=== PATIENT | female | born 1985 | race Caucasian/White ===

== ENCOUNTER 2020-04-05 15:19 | Emergency (ER) | payer BC, MEDICAID ==
[2020-04-05 15:37] VITALS: BP 119/72; PULSE 97
[2020-04-05] MEDS ORDERED: Sodium Chloride 0.9% 10 ML Syringe FLUSH PRN (15:49)
[2020-04-05] MEDS ORDERED: Dextrose 5%-0.9% NaCl 1,000 ML IV SCH (15:50)
[2020-04-05] MEDS ORDERED: LORazepam 2 MG/ML SDV IVPUSH ONE (15:50)
--- NOTE | 2020-04-05 15:58 | EDM.PDOC ---
ED HPI GENERAL MEDICAL PROBLEM - General Chief Complaint: DIRECTOR OF CONSERVATION Problem Stated Complaint: SOB/DIZZY/CRAMPS-18WEEK Time Seen by Provider: 04/05/20 15:40 Source of Information: Reports: Patient, RN Notes Reviewed History Limitations: Reports: No Limitations - History of Present Illness INITIAL COMMENTS - FREE TEXT/NARRATIVE: Patient is a 34-year-old female who presents to the ED for the evaluation of her shortness of breath and dizziness. Patient notes she has around 18 weeks . She is a G3, . DIRECTOR OF CONSERVATION is Dr. Felecia Draper. Patient notes has been going well however for the last few weeks, she wakes up in [place], where she feels like she just cannot catch her breath. She notes that this started this morning early, and she is having some chest discomfort, shortness of breath, and dizziness with standing. She states that she felt quite fine yesterday. She does have a history of anxiety but is not on any medications for this. She was complaining of some lower abdomen cramping after she began feeling short of breath. She thought maybe she was having some decreased movement at today's visit. Heart tones were obtained at time of triage and these were found by Doppler at 150-155 bpm. Otherwise patient had no fevers or chills, cough, or any other sick-like symptoms. Lower Abdomen Pain Score (Numeric/FACES): 5 - Related Data Allergies Allergy/AdvReac Type Severity Reaction Status Date / Time Sulfa (Sulfonamide Allergy Hives Verified 04/05/20 15:37 Antibiotics) Home Meds: Home Meds QUEtiapine [SEROquel] 100 mg PO BEDTIME 02/04/19 [History] oxyCODONE 7.5 mg PO Q6HR PRN 02/04/19 [History] LORazepam [Ativan] 1 mg PO BID PRN #12 tab 04/05/20 [Rx] Magnesium 2 tab PO BID 04/05/20 [History] Pnv No.95/Ferrous Fum/Folic AC [ Caplet] 2 tab PO DAILY 04/05/20 [History] Past Medical History Other Gastrointestinal History: stomach pain for 2 months Other Genitourinary History: vulvadema DIRECTOR OF CONSERVATION History: Reports: Spontaneous (x1) : 3 Para: 1 Other Psychiatric History: anxiety that is now under control. depression in the past. - Past Surgical History Female Surgical History: Reports: Section Other Female Surgeries/Procedures: 2 surgeries for vulvedemia Social & Family History - Tobacco Use Tobacco Use Status *Q: Current Every Day Tobacco User Years of Tobacco use: 20 Packs/Tins Daily: 0.5 - Caffeine Use Caffeine Use: Reports: None - Recreational Drug Use Recreational Drug Use: No ED ROS GENERAL - Review of Systems Review Of Systems: Comprehensive ROS is negative, except as noted in HPI. ED EXAM - Physical Exam Exam: See Below Exam Limited By: No Limitations General Appearance: Alert, WD/WN, No Apparent Distress Respiratory/Chest: No Respiratory Distress, Lungs Clear, Normal Breath Sounds, No Accessory Muscle Use, Chest Non-Tender Cardiovascular: Normal Peripheral Pulses, Regular Rate, Rhythm, No Edema GI/Abdominal Exam: Normal Bowel Sounds, Soft, Non-Tender, No Distention, No Mass Heart Tones: Present Heart Tones per Min: 155 Movement: Active Psychiatric: Normal Affect, Normal Mood, Anxious (generalized anxiety appreciated) Skin Exam: Warm, Dry, Intact, Normal Color, No Rash Course - Vital Signs Last Recorded V/S: Last Vital Signs Temp 98.6 F 04/05/20 15:29 Pulse 97 04/05/20 15:29 Resp 20 04/05/20 15:29 BP 119/72 04/05/20 15:29 Pulse Ox 100 04/05/20 15:29 - Orders/Labs/Meds Orders: Active Orders 24 hr Category Date Time Status Peripheral IV Care [RC] . DIRECTED Care 04/05/20 15:50 Ordered Dextrose 5%-0.9% NaCl [Dextrose 5%-Normal Saline] 1,000 Med 04/05/20 15:50 Ordered ml IV ASDIRECTED Sodium Chloride 0.9% [Saline Flush] Med 04/05/20 15:49 Ordered 10 ml FLUSH ASDIRECTED PRN Peripheral IV Insertion Adult [OM.PC] Routine Oth 04/05/20 15:49 Ordered Medication Orders Dextrose/Sodium Chloride (Dextrose 5%-Normal Saline) 1,000 mls @ 999 mls/hr IV ASDIRECTED VITO Last Admin: 04/05/20 16:02 Dose: 999 mls/hr Documented by: SHARI Sodium Chloride (Saline Flush) 10 ml FLUSH ASDIRECTED PRN PRN Reason: Keep Vein Open Last Admin: 04/05/20 16:02 Dose: 10 ml Documented by: SHARI Labs: Laboratory Tests 04/05/20 04/05/20 Range/Units 15:53 15:53 WBC 6.71 (3.98-10.04) K/mm3 RBC 3.61 L (3.98-5.22) M/mm3 Hgb 11.3 D (11.2-15.7) gm/dl Hct 34.7 (34.1-44.9) % MCV 96.1 H D (79.4-94.8) fl MCH 31.3 (25.6-32.2) pg MCHC 32.6 (32.2-35.5) g/dl RDW Std Deviation 45.4 (36.4-46.3) fL Plt Count 213 (182-369) K/mm3 MPV 9.5 (9.4-12.3) fl Neut % (Auto) 76.0 H (34.0-71.1) % Lymph % (Auto) 17.6 L (19.3-51.7) % Arroyo % (Auto) 5.4 (4.7-12.5) % Eos % (Auto) 0.3 L (0.7-5.8) Baso % (Auto) 0.6 (0.1-1.2) % Neut # (Auto) 5.10 (1.56-6.13) K/mm3 Lymph # (Auto) 1.18 (1.18-3.74) K/mm3 Arroyo # (Auto) 0.36 (0.24-0.36) K/mm3 Eos # (Auto) 0.02 L (0.04-0.36) K/mm3 Baso # (Auto) 0.04 (0.01-0.08) K/mm3 Sodium 138 (136-145) mEq/L Potassium 3.6 (3.5-5.1) mEq/L Chloride 103 (98-107) mEq/L Carbon Dioxide 24 (21-32) mEq/L Anion Gap 14.6 (5-15) BUN 6 L (7-18) mg/dL Creatinine 0.5 L (0.55-1.02) mg/dL Est Cr Clr Drug Dosing 151.26 mL/min Estimated GFR (MDRD) > 60 (>60) mL/min BUN/Creatinine Ratio 12.0 L (14-18) Glucose 104 (74-106) mg/dL Calcium 8.4 L (8.5-10.1) mg/dL Magnesium 1.6 L (1.8-2.4) mg/dl Total Bilirubin 0.4 (0.2-1.0) mg/dL AST 12 L (15-37) U/L ALT 15 (14-59) U/L Alkaline Phosphatase 46 (46-116) U/L Total Protein 6.8 (6.4-8.2) g/dl Albumin 3.3 L (3.4-5.0) g/dl Globulin 3.5 gm/dL Albumin/Globulin Ratio 0.9 L (1-2) Meds: Medications Generic Name Dose Route Start Last Admin Trade Name Freq PRN Reason Stop Dose Admin Dextrose/Sodium Chloride 1,000 mls @ 999 mls/hr 04/05/20 15:50 04/05/20 16:02 Dextrose 5%-Normal Saline IV 999 mls/hr ASDIRECTED VITO Administration Sodium Chloride 10 ml 04/05/20 15:49 04/05/20 16:02 Saline Flush FLUSH 10 ml ASDIRECTED PRN Administration Keep Vein Open Discontinued Medications Generic Name Dose Route Start Last Admin Trade Name Freq PRN Reason Stop Dose Admin Lorazepam 1 mg 04/05/20 15:50 04/05/20 16:02 Ativan IVPUSH 04/05/20 15:51 1 mg ONETIME ONE Administration - Re-Assessments/Exams Free Text/Narrative Re-Assessment/Exam: 04/05/20 15:57 Patient presents to the ED for the evaluation of her shortness of breath/dizziness. I do highly believe these are anxiety or panic attacks. We will get some baseline labs, heart tones were found at today's visit and seem to be within normal limits. No further imaging of the fetus will be done. Patient will get some IV fluids and Ativan for her anxiety. 04/05/20 16:26 Patient's labs have resulted, and everything is essentially within normal limits however her magnesium slightly low at 1.6. She can supplement this with dietary intake. 04/05/20 16:49 Patient notes she is feeling much better. We will let her finish IV fluids and discharge her home with general recommendations. She will be given a prescription of Ativan for ongoing management. Departure - Departure Time of Disposition: 16:51 Disposition: Home, Self-Care 01 Condition: Good Clinical Impression: Anxiety attack - Discharge Information *PRESCRIPTION DRUG MONITORING PROGRAM REVIEWED*: Yes *COPY OF PRESCRIPTION DRUG MONITORING REPORT IN PATIENT SONA: No Instructions: Panic Attack, [id number] Referrals: Felecia Draper MD [Primary Care Provider] - Forms: ED Department Discharge Additional Instructions: You were seen in this ER today for your multiple complaints. You had labs drawn, and everything seems to be within normal limits. Your magnesium level is slightly low however you state that you do take magnesium s upplementation on a daily basis. Please continue to do as such. Again our lower limit of normal is 1.8, and your magnesium level is 1.6 so not worrisomely low. You were given some IV fluids and IV Ativan, this seemed to help relieve most your symptoms. You were given a prescription for Ativan, please fill at your pharmacy of choice tomorrow and take as directed for further anxiety issues. Highly recommend you discuss with your DIRECTOR OF CONSERVATION, for continuation of this medication if you feel it is providing benefit. Please do not hesitate to return to the ER at any time if symptoms change or worsen. Sepsis Event Note (ED) - Evaluation Sepsis Screening Result: No Definite Risk - Focused Exam Vital Signs: Vital Signs Temp Pulse Resp BP Pulse Ox 04/05/20 15:29 98.6 F 97 20 119/72 100 - My Orders Last 24 Hours: My Active Orders 04/05/20 15:49 Sodium Chloride 0.9% [Saline Flush] 10 ml FLUSH ASDIRECTED PRN Peripheral IV Insertion Adult [OM.PC] Routine 04/05/20 15:50 Peripheral IV Care [RC] . DIRECTED Dextrose 5%-0.9% NaCl [Dextrose 5%-Normal Saline] 1,000 ml IV ASDIRECTED - Assessment/Plan Last 24 Hours: My Active Orders 04/05/20 15:49 Sodium Chloride 0.9% [Saline Flush] 10 ml FLUSH ASDIRECTED PRN Peripheral IV Insertion Adult [OM.PC] Routine 04/05/20 15:50 Peripheral IV Care [RC] . DIRECTED Dextrose 5%-0.9% NaCl [Dextrose 5%-Normal Saline] 1,000 ml IV ASDIRECTED
[2020-04-05] MEDS ORDERED: LORazepam 1 MG Tab PO ONE (16:54)
== END 2020-04-05 17:07 | disposition home or self-care (01) ==
LOC: JD.ED 15:19
DX: O99.342 Other mental disorders complicating pregnancy, second trimester (principal); F41.9 Anxiety disorder, unspecified; Z88.2 Allergy status to sulfonamides; Z72.0 Tobacco use; Z79.899 Other long term (current) drug therapy; Z3A.18 18 weeks gestation of pregnancy
CPT/HCPCS: 36415; 80053; 83735; 85025; 96374; 99284; A9270; J2060; J7042